=== PATIENT | male | born 1975 | race Caucasian/White ===

== ENCOUNTER 2022-08-30 22:21 | Emergency (ER) | payer BC, OTHER ==
[~2022-08-30] VITALS: Ht 193 cm; Wt 185.5 kg
[~2022-08-30 22:21] MED LIST: APIX5TAB2 PO; Amiodarone Hcl PO; HYOS0.1217 PO; NAPR-243 PO; RANI-324 PO; RANI75TA30 PO; ROLAIDS PO
[2022-08-30] MEDS ORDERED: GLUCAGON EMERGENCY 1 MG/KIT IV ONE (22:30)
--- NOTE | 2022-08-30 22:44 | ED General ---
General Chief Complaint: Oral/Throat Problems Stated Complaint: CHOKED ON FOOD Nursing Triage Note: PT AMB TO RM 5 ALONGSIDE [facility] FROM HOME W REPORTS OF CHOKING ON CHICKEN AT APPROX 2034 THIS PM. PT STATES HE VOMITTED, STILL FEELS LIKE THERES SOMETHING IN ESOPHAGUS. PT A&OX4, REPORTS HE TRIED COKE METHOD W/O RELIEF. Source of Information: Patient History of Present Illness Date Seen by Provider: Aug 30, 2022 Time Seen by Provider: 22:27 Initial Comments PT ARRIVES VIA EMS FROM HOME--WALKS INTO ER ON HIS OWN FROM THE AMBULANCE PT STATES AROUND 2029 HE WAS EATING CHICKEN AND FOOD GOT STUCK HE IS NOT HAVING ANY PROBLEMS BREATHING HE IS NOT ABLE TO SWALLOW SALIVA STATES THIS HAS HAPPENED BEFORE BUT IT HAS ALWAYS RESOLVED ON IT'S OWN STATES HE DRANK COKE TONIGHT WITHOUT RELIEF. HE HAS NEVER HAD AN EGD PT IS NOT ON ASPIRIN OR BLOOD THINNERS HE HAS NEVER SOUGHT CARE FOR THIS PROBLEM HE DESCRIBES CHRONIC "HEARTBURN" AND TAKES TUMS ON DAILY BASIS AND OVER THE COUNTER ACID REDUCERS ON A FREQUENT BASIS, BEFORE EATING FOODS HE KNOWS WILL CAUSE BAD HEARTBURN. PCP :JABARI-FRANCISCO, JENNIFER ARRINGTON IN THE PAST, DR. DONALD Allergies and Home Medications Allergies Coded Allergies: No Known Drug Allergies (Unverified , 08/22/11) Patient Home Medication List Home Medication List Reviewed: Yes Pantoprazole Sodium (Protonix) 40 Mg Tablet.dr, 40 MG PO DAILY Prescribed by: MENA JOAQUIN on 08/30/222345 Ranitidine HCl (Zantac 75) 75 Mg Tablet, 75 MG PO BID, (Reported) Entered as Reported by: ALEXIS OLMEDO on 06/24/15 1022 Sucralfate (Carafate) 1 Gram Tablet, 1 GM PO QID Prescribed by: MENA JOAQUIN on 08/30/22 2346 Review of Systems Review of Systems Constitutional: no symptoms reported EENTM: see HPI Respiratory: no symptoms reported Cardiovascular: no symptoms reported Past Spztkix-Lflqla-Aqtbqr Hx Patient Social History Tobacco Use?: No Use of E-Cig and/or Vaping dev: No Substance use?: No Alcohol Use?: Yes Alcohol Frequency: Once in a while Immunizations Up To Date Influenza Vaccine Up-to-Date: Yes; Up-to-Date First/Initial COVID19 Vaccinat: 2020 Second COVID19 Vaccination Umer: 2020 Third COVID19 Vaccination Date: NONE 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 Past Medical History Surgeries: Yes (CARDIOVERSION 2013) Cardiac Respiratory: No Cardiac: Yes (SVT/WPW/AFIB WITH WIDE COMPLEX TACHYCARDIA 2013--S/P CARDIOVERSION) Atrial Fibrillation, High Cholesterol, Irregular Heartbeat Neurological: No Reproductive Disorders: No Genitourinary: No Gastrointestinal: Yes (SELF DX OF GERD) Gastroesophageal Reflux Musculoskeletal: Yes Chronic Back Pain Endocrine: Yes (MORBID OBESITY) HEENT: No Hearing Impairment: Denies Cancer: No Psychosocial: Yes Anxiety Integumentary: No Blood Disorders: No Family Medical History FH: Achaw-Xhhfgqfkz-Gmlrt syndrome 19 FATHER, Onset: - Physical Exam Vital Signs Vital Signs - First Documented 08/30/22 22:21 Temp 36.6 Pulse 98 Resp 20 B/P (MAP) 148/108 (121) Pulse Ox 99 O2 Delivery Room Air Capillary Refill : Less Than 3 Seconds Height, Weight, BMI Height: 0'76.00" Weight: 327lbs. 5.0oz. 148.093859tq; 49.00 BMI Method:Actual General Appearance: No Apparent Distress, WD/WN, Obese, Other (PT CONSTANTLY SPITTING UP SALIVA, AND THEN BEGINS HAVING THE HICCUPS SHORTLY AFTER ARRIVAL. ) HEENT: Other (PT IS ABLE TO TALK WITHOUT DIFFICULTY) Respiratory: Normal Breath Sounds, No Accessory Muscle Use, No Respiratory Distress Cardiovascular: Regular Rate, Rhythm, No Murmur Neurologic/Psychiatric: Alert, Oriented x3, No Motor/Sensory Deficits, Normal Mood/Affect Skin: Normal Color, Warm/Dry, Tattoos/Piercings Progress/Results/Core Measures Suspected Sepsis SIRS Temperature: Pulse: 98 Respiratory Rate: 20 Blood Pressure 148 /108 Mean: 121 Results/Orders My Orders Orders - MENA JOAQUIN DO Glucagon Emergency Kit (Glucagon Emergen (08/30/22 22:30) Ed Iv/Invasive Line Start (08/30/22 22:27) Monitor-Rhythm Ecg Trace Only (08/30/22 22:27) Medications Given in ED Current Medications Medications Dose Ordered Sig/Juancho Route Start Time Stop Time Status Last Admin Dose Admin Glucagon 1 mg ONCE ONCE IV 08/30/22 22:30 08/30/22 22:31 DC 08/30/22 22:38 1 MG Vital Signs/I&O 08/30/22 22:21 Temp 36.6 Pulse 98 Resp 20 B/P (MAP) 148/108 (121) Pulse Ox 99 O2 Delivery Room Air Capillary Refill : Less Than 3 Seconds Blood Pressure Mean: 121 Progress Note : Progress Note GIVEN GLUCAGON IV COMPLETE RESOLUTION OF ALL SYMPTOMS--PT IS ABLE TO DRINK LIQUIDS WITHOUT DIFFICULTY, STATES HE FEELS MUCH BETTER, AND STATES HE COULD FEEL HIS ESOPHAGUS RELAX AND COULD FEEL THE FOOD PASS, AFTER RECEIVING GLUCAGON DISCUSSED ANTICIPATED COURSE, NEED FOR FOLLOW UP AND RETURN PRECAUTIONS Departure Impression Primary Impression: Esophageal obstruction due to food impaction Disposition: HOME, SELF-CARE Condition: Improved Departure-Patient Inst. Decision time for Depature: 23:44 Referrals: LYNDON PHILLIPS BETHANY N MD (PCP/Family) Primary Care Physician Patient Instructions: Food Obstruction Add. Discharge Instructions: HOME, REST SOFT DIET--AVOID ANY FOODS THAT REQUIRE CHEWING AT THIS TIME NO CAFFEINE OR CARBONATED BEVERAGES NO SPICY, GREASY OR ACIDIC FOODS OR DRINKS ELEVATE HEAD OF BED AT LEAST 30 DEGREES KEEP UPRIGHT FOR AT LEAST AN HOUR AFTER EATING FOLLOW UP WITH DR. PHILLIPS, SURGEON, FOR FURTHER EVALUATION --CALL IN THE MORNING TO SCHEDULE AN APPOINTMENT All discharge instructions reviewed with patient and/or family. Voiced understanding. Scripts Sucralfate (Carafate) 1 Gram Tablet 1 GM PO QID, #60 TAB Prov: MENA JOAQUIN DO 08/30/22 Pantoprazole Sodium (Protonix) 40 Mg Tablet. 40 MG PO DAILY, #15 TAB Prov: MENA JOAQUIN DO 08/30/22 MENA JOAQUIN DO Aug 30, 2022 22:44
[2022-08-30] MEDS ORDERED: SUCR1TAB36 PO (23:46)
[2022-08-30] MEDS ORDERED: PANT40TA2 PO (23:46)
[2022-08-30 23:57] VITALS: BP 148/108
== END 2022-08-30 23:56 | disposition home or self-care (01) ==
LOC: EDUNIT# 22:21 → ER 22:22
DX: K22.2 Esophageal obstruction (principal); E66.01 Morbid (severe) obesity due to excess calories; Z68.42 Body mass index [BMI] 45.0-49.9, adult; Z87.19 Personal history of other diseases of the digestive system; Z88.8 Allergy status to other drugs, medicaments and biological substances
CPT/HCPCS: 99283

== ENCOUNTER → 2022-09-19 | Outpatient (CLI) | payer OTHER ==
[~2022-09-19] MED LIST changes: +PANT40TA2 PO; +SUCR1TAB36 PO
== END ==
LOC: PREOP 05:32
PROVIDERS: ATTEND Surgery
DX: Z01.818 Encounter for other preprocedural examination (principal); R13.10 Dysphagia, unspecified

== ENCOUNTER → 2022-09-22 | Outpatient (CLI) | payer OTHER ==
[~2022-09-22] MED LIST changes: +BARIUM for suspension 96% w/w (Vanilla Silq Medium Density) PO ONE; +BARIUM for suspension 98% w/w (Vanilla Silq High Density) PO ONE
--- NOTE | 2022-09-22 13:09 | Diagnostic Imaging Report ---
INDICATION: Choking episodes and dysphagia. The patient ingested effervescent crystals as well as thin and thick barium and imaging of the esophagus was performed in multiple obliquities. A total of 52 seconds of fluoroscopic time was utilized. Preliminary radiograph over the chest does show a very large hiatal hernia. Lungs are clear. Esophagus has a smooth contour. Moderate gastroesophageal reflux is demonstrated. There is a large hiatal hernia which appears to be paraesophageal. There is emptying of contrast into the small bowel. No gastric outlet obstruction is seen. IMPRESSION: Large paraesophageal hiatal hernia. Dictated by: Dictated on workstation # [id number]
== END ==
LOC: RAD 10:17
PROVIDERS: ATTEND Surgery
DX: K44.9 Diaphragmatic hernia without obstruction or gangrene (principal)
CPT/HCPCS: 74220